=== PATIENT | female | born 1995 | race Caucasian/White ===

== ENCOUNTER 2017-10-01 17:58 | Emergency (ER) | payer BC, OTHER ==
[2017-10-01] MEDS: GI Cocktail Oral Solution 30 ML PO ONE (19:03)
[2017-10-01] MEDS: Ondansetron 4 MG Tab.DIS PO ONE (19:03)
[2017-10-01 19:24] LABS: ANION GAP 8.7; CHLORIDE,CL 105 mmol/L (101-111); SODIUM,NA 136 mmol/L (135-145)
[2017-10-01] MEDS: Famotidine 20 MG/2 ML SDV IVPUSH ONE (20:01)
[2017-10-01 20:08] VITALS: BP 125/87
--- NOTE | 2017-10-01 21:57 | EDM.PDOC ---
ED HPI GENERAL MEDICAL PROBLEM - General Chief Complaint: Abdominal Pain Stated Complaint: [id number] PAIN-FAINT [place] SOUNDS Time Seen by Provider: 10/01/17 19:00 Source of Information: Reports: Patient History Limitations: Reports: No Limitations - History of Present Illness INITIAL COMMENTS - FREE TEXT/NARRATIVE: C/o mid epigastric pain, sharp stabbing started at midnight continued today, nausea no vomiting, 2 diarrhea stools and one normal today. Poor appetite no fever or chills. Has not tried anything to relieve. 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 Does not feel distended. Epigastric Pain Score (Numeric/FACES): 2 - Related Data Allergies Allergy/AdvReac Type Severity Reaction Status Date / Time No Known Allergies Allergy Verified 10/01/17 18:11 Home Meds: Home Meds . [No Known Home Meds] 06/18/14 [History] Past Medical History - Past Health History Medical/Surgical History: Denies Medical/Surgical History Social & Family History - Tobacco Use Smoking Status *Q: Never Smoker - Recreational Drug Use Recreational Drug Use: No ED ROS GENERAL - Review of Systems Review Of Systems: ROS reveals no pertinent complaints other than HPI. ED EXAM, GI/ABD - Physical Exam Exam: See Below Exam Limited By: No Limitations General Appearance: Alert, Mild Distress, Obese Eyes: Bilateral: EOMI Ears: Normal External Exam Nose: Normal Inspection Throat/Mouth: Normal Inspection Head: Atraumatic, Normocephalic Neck: Normal Inspection Respiratory/Chest: No Respiratory Distress, Lungs Clear Cardiovascular: Normal Peripheral Pulses, Regular Rate, Rhythm GI/Abdominal Exam: Normal Bowel Sounds, Soft, Tender (epigastric). No: Distended, Guarding, Rigid, Rebound, Mass Back Exam: Normal Inspection, Full Range of Motion. No: CVA Tenderness (L), CVA Tenderness (R) Extremities: Normal Inspection, Normal Range of Motion Neurological: Alert, Oriented, Normal Cognition Psychiatric: Normal Affect, Normal Mood Skin Exam: Warm, Dry, Intact, Normal Color Course - Vital Signs Last Recorded V/S: Last Vital Signs Temp 98.2 F 10/01/17 20:08 Pulse 78 10/01/17 20:08 Resp 17 10/01/17 20:08 BP 125/87 07/11/18 20:08 Pulse Ox 100 10/01/17 20:08 - Orders/Labs/Meds Orders: Active Orders 24 hr Category Date Time Status KUB [Abdomen 1V Flat] [CR] Urgent Exams 10/01/17 19:36 Taken HCG QUALITATIVE,URINE [URCHEM] Stat Lab 10/01/17 19:13 Ordered UA W/MICROSCOPIC [URIN] Stat Lab 10/01/17 19:13 Ordered Labs: Laboratory Tests 10/01/17 10/01/17 10/01/17 Range/Units 18:55 18:55 19:13 WBC 10.0 (5.0-10.0) 10^3/uL RBC 4.60 (4.2-5.4) 10^6/uL Hgb 13.4 (12.0-16.0) g/dL Hct 41.8 (37.0-47.0) % MCV 90.9 (80-100) fL MCH 29.1 (27.0-34.0) pg MCHC 32.1 L (33.0-35.0) g/dL Plt Count 265 (150-450) 10^3/uL Neut % (Auto) 69.2 (42.2-75.2) % Lymph % (Auto) 20.6 (20.5-50.1) % Peach % (Auto) 8.7 H (2-8) % Eos % (Auto) 1.0 (1.0-3.0) % Baso % (Auto) 0.5 (0.0-1.0) % Sodium 136 (135-145) mmol/L Potassium 3.7 (3.6-5.0) mmol/L Chloride 105 (101-111) mmol/L Carbon Dioxide 26.0 (21.0-31.0) mmol/L Anion Gap 8.7 BUN 11 (7-18) mg/dL Creatinine 0.6 (0.6-1.3) mg/dL Est Cr Clr Drug Dosing 125.92 mL/min Estimated GFR (MDRD) > 60 BUN/Creatinine Ratio 18.33 Glucose 109 H (74-105) mg/dL Calcium 9.1 (8.4-10.2) mg/dl Total Bilirubin 0.4 (0.2-1.0) mg/dL AST 23 (10-42) IU/L ALT 25 (10-60) IU/L Alkaline Phosphatase 50 (42-121) IU/L Total Protein 7.7 (6.7-8.2) g/dl Albumin 4.3 (3.2-5.5) g/dl Globulin 3.4 Albumin/Globulin Ratio 1.26 Amylase 55 (28-100) U/L Lipase 29 (22-51) U/L Urine Color Yellow (YELLOW) Urine Appearance Clear (CLEAR) Urine pH 5.5 (5.0-9.0) Ur Specific [place] 1.015 (1.005-1.030) Urine Protein Negative (NEGATIVE) Urine Glucose (UA) Negative (NEGATIVE) Urine Ketones Negative (NEGATIVE) Urine Occult Blood Trace-intact H (NEGATIVE) Urine Nitrite Negative (NEGATIVE) Urine Bilirubin Negative (NEGATIVE) Urine Urobilinogen 0.2 (0.2-1.0) mg/dL Ur Leukocyte Esterase Negative (NEGATIVE) Urine RBC 0-5 /HPF Urine WBC 0-5 (0-5/HPF) /HPF Ur Epithelial Cells Few /HPF Urine Bacteria Few (0-FEW/HPF) /HPF Urine HCG, Qual 10/01/17 Range/Units 19:13 WBC (5.0-10.0) 10^3/uL RBC (4.2-5.4) 10^6/uL Hgb (12.0-16.0) g/dL Hct (37.0-47.0) % MCV (80-100) fL MCH (27.0-34.0) pg MCHC (33.0-35.0) g/dL Plt Count (150-450) 10^3/uL Neut % (Auto) (42.2-75.2) % Lymph % (Auto) (20.5-50.1) % [place] % (Auto) (2-8) % Eos % (Auto) (1.0-3.0) % Baso % (Auto) (0.0-1.0) % Sodium (135-145) mmol/L Potassium (3.6-5.0) mmol/L Chloride (101-111) mmol/L Carbon Dioxide (21.0-31.0) mmol/L Anion Gap BUN (7-18) mg/dL Creatinine (0.6-1.3) mg/dL Est Cr Clr Drug Dosing mL/min Estimated GFR (MDRD) BUN/Creatinine Ratio Glucose (74-105) mg/dL Calcium (8.4-10.2) mg/dl Total Bilirubin (0.2-1.0) mg/dL AST (10-42) IU/L ALT (10-60) IU/L Alkaline Phosphatase (42-121) IU/L Total Protein (6.7-8.2) g/dl Albumin (3.2-5.5) g/dl Globulin Albumin/Globulin Ratio Amylase (28-100) U/L Lipase (22-51) U/L Urine Color (YELLOW) Urine Appearance (CLEAR) Urine pH (5.0-9.0) Ur Specific [place] (1.005-1.030) Urine Protein (NEGATIVE) Urine Glucose (UA) (NEGATIVE) Urine Ketones (NEGATIVE) Urine Occult Blood (NEGATIVE) Urine Nitrite (NEGATIVE) Urine Bilirubin (NEGATIVE) Urine Urobilinogen (0.2-1.0) mg/dL Ur Leukocyte Esterase (NEGATIVE) Urine RBC /HPF Urine WBC (0-5/HPF) /HPF Ur Epithelial Cells /HPF Urine Bacteria (0-FEW/HPF) /HPF Urine HCG, Qual Negative Meds: Medications Discontinued Medications Generic Name Dose Route Start Last Admin Trade Name Freq PRN Reason Stop Dose Admin Al Hydroxide/Mg Hydroxide 30 ml 10/01/17 18:53 10/01/17 19:03 Gi Cocktail PO 10/01/17 18:54 30 ml ONETIME ONE Administration Famotidine 20 mg 10/01/17 19:47 10/01/17 20:01 Pepcid IVPUSH 10/01/17 19:48 20 mg ONETIME ONE Administration Ondansetron HCl 4 mg 10/01/17 18:53 10/01/17 19:03 Zofran Odt PO 10/01/17 18:54 4 mg ONETIME ONE Administration - Radiology Interpretation Free Text/Narrative:: KUB, normal amoun of stool, no signs of obstruction. - Re-Assessments/Exams Free Text/Narrative Re-Assessment/Exam: 10/02/17 04:12 minimal relief from GI cocktail. Improvement with Pepcid. Departure - Departure Time of Disposition: 21:54 Disposition: Home, Self-Care 01 Condition: Good Clinical Impression: Gastritis Qualifiers: Gastritis type: unspecified gastritis Chronicity: acute Gastritis bleeding: without bleeding Qualified Code(s): K29.00 - Acute gastritis without bleeding - Discharge Information Instructions: Gastritis, Adult, [id number] Referrals: Niki Grimes MD [Primary Care Provider] - Forms: ED Department Discharge Additional Instructions: bland diet, smaller more frequent meals omeprazole 20mg daily follwoup with primary care if symptoms not improving avoid caffeine, carbonated beverages - My Orders Last 24 Hours: My Active Orders 10/01/17 19:36 KUB [Abdomen 1V Flat] [CR] Urgent - Assessment/Plan Last 24 Hours: My Active Orders 10/01/17 19:36 KUB [Abdomen 1V Flat] [CR] Urgent
== END 2017-10-01 22:00 | disposition home or self-care (01) ==
LOC: DL.ED 17:58
DX: K29.00 Acute gastritis without bleeding (principal)
CPT/HCPCS: 36415; 74018; 80053; 81001; 81025; 82150; 83690; 85025; 96374; 99284; A9270; S0028

== ENCOUNTER 2020-02-26 11:52 | Emergency (ER) | payer MEDICAID, OTHER ==
[2020-02-26 12:02] VITALS: BP 153/94; PULSE 145
[2020-02-26] MEDS ORDERED: Penicillin G Benzathine/Procaine 600-600 1.2 Millunits/2 ML Syringe IM ONE (12:02)
--- NOTE | 2020-02-26 12:06 | EDM.PDOC ---
ED HPI GENERAL MEDICAL PROBLEM - General Chief Complaint: ENT Problem Stated Complaint: SORE THROAT Time Seen by Provider: 02/26/20 12:01 Source of Information: Reports: Patient, RN, RN Notes Reviewed History Limitations: Reports: No Limitations - History of Present Illness INITIAL COMMENTS - FREE TEXT/NARRATIVE: Pt presents to ER with c/o sore throat x1 days duration. Pt was exposed last week to a niece who tested positive for strep throat. Pt works at the [facility] and is tested twice a week for COVID and has been negative this week. Pt also states she has taken 5 tests this week and all have been negative. Denies cough, N/V, chest pain, or shortness of breath. Onset: Sudden Duration: Constant Location: Reports: Other (Throat) Quality: Reports: Ache, Burning Severity: Severe Improves with: Reports: None Worsens with: Reports: Eating (Swallowing) Associated Symptoms: Reports: No Other Symptoms - Related Data Allergies Allergy/AdvReac Type Severity Reaction Status Date / Time No Known Allergies Allergy Verified 10/01/17 18:11 Home Meds: Home Meds . [No Known Home Meds] 06/18/14 [History] Past Medical History - Past Health History Medical/Surgical History: Denies Medical/Surgical History Social & Family History - Family History Family Medical History: No Pertinent Family History - Living Situation & Occupation Living situation: Reports: with Family Occupation: Employed ED ROS ENT - Review of Systems Review Of Systems: Comprehensive ROS is negative, except as noted in HPI. ED EXAM, ENT - Physical Exam Exam: See Below Exam Limited By: No Limitations General Appearance: Alert, WD/WN, No Apparent Distress, Obese Eye Exam: Bilateral Eye: Normal Inspection Ears: Normal External Exam, Hearing Grossly Normal Nose: Normal Inspection, Normal Mucousa, No Blood Mouth/Throat: Normal Gums, Normal Lips, Normal Teeth, Pharyngeal Erythema, Throat Pain, Tonsillar Erythema, Tonsillar Exudates, Tonsillar Swelling. No: Muffled Voice, Oral Ulcers, Throat Swelling, Tongue Swelling, Trismus, Uvular Deviation, Uvular Edema Head: Atraumatic, Normocephalic Neck: Full Range of Motion, Lymphadenopathy (L), Lymphadenopathy (R) Respiratory/Chest: No Respiratory Distress, Lungs Clear, Normal Breath Sounds, No Accessory Muscle Use, Chest Non-Tender Cardiovascular: Regular Rate, Rhythm, Tachycardia GI/Abdominal: Normal Bowel Sounds, Soft, Non-Tender Extremities: Normal Inspection Neurological: Alert, Oriented, No Motor/Sensory Deficits Psychiatric: Normal Mood Skin: Warm, Dry, Intact, Normal Color, No Rash Course - Vital Signs Last Recorded V/S: Last Vital Signs Temp 98.8 F 02/26/20 12:01 Pulse 145 H 02/26/20 12:01 Resp 18 02/26/20 12:01 BP 153/94 H 02/26/20 12:01 Pulse Ox 97 02/26/20 12:01 - Orders/Labs/Meds Meds: Medications Discontinued Medications Generic Name Dose Route Start Last Admin Trade Name Freq PRN Reason Stop Dose Admin Penicillin G Procaine/Benzathine 1.2 millunits 02/26/20 12:02 Bicillin C-R 600/600 IM 02/26/20 12:03 ONETIME ONE Departure - Departure Time of Disposition: 12:15 Disposition: Home, Self-Care 01 Condition: Good Clinical Impression: Strep pharyngitis - Discharge Information *PRESCRIPTION DRUG MONITORING PROGRAM REVIEWED*: Not Applicable *COPY OF PRESCRIPTION DRUG MONITORING REPORT IN PATIENT SARA: Not Applicable Instructions: Strep Throat, Adult, [id number] Forms: ED Department Discharge Additional Instructions: Rx: Zithromax 500mg Frequent saltwater gargles until sore throat resolves. Follow up in clinic if any further concerns. Sepsis Event Note (ED) - Evaluation Sepsis Screening Result: No Definite Risk - Focused Exam Vital Signs: Vital Signs Temp Pulse Resp BP Pulse Ox 02/26/20 12:01 98.8 F 145 H 18 153/94 H 97
== END 2020-02-26 12:29 | disposition home or self-care (01) ==
LOC: DL.ED 11:52
DX: J02.0 Streptococcal pharyngitis (principal); R00.0 Tachycardia, unspecified; E66.9 Obesity, unspecified; Z68.41 Body mass index [BMI] 40.0-44.9, adult
CPT/HCPCS: 96372; 99282; J0558

== ENCOUNTER 2020-11-18 01:51 | Inpatient (IN) | payer MEDICAID ==
[2020-11-18] MEDS ORDERED: Acetaminophen 325 MG Tab PO PRN (07:01)
[2020-11-18] MEDS ORDERED: Promethazine 25 MG/ML SDV IM PRN (07:01)
[2020-11-18] MEDS ORDERED: fentaNYL 100 MCG/2 ML SDV IVPUSH PRN (07:01)
[2020-11-18] MEDS ORDERED: Lactated Ringers 1,000 ML IV ONE (07:01)
[2020-11-18] MEDS ORDERED: Naloxone 2 MG/2 ML Syringe IVPUSH PRN (07:01)
[2020-11-18] MEDS ORDERED: Lidocaine 1% 30 ML SDV INJECT PRN (07:01)
[2020-11-18] MEDS ORDERED: Carboprost Tromethamine 250 MCG/1 ML Amp IM PRN (07:01)
[2020-11-18] MEDS ORDERED: ePHEDrine 50 MG/ML SDV IVPUSH PRN (07:01)
[2020-11-18] MEDS ORDERED: Misoprostol 400 MCG (4 X 100 MCG TAB) RECTAL PRN (07:01)
[2020-11-18] MEDS ORDERED: Ondansetron 4 MG/2 ML SDV IVPUSH PRN ×2 (07:01)
[2020-11-18] MEDS ORDERED: Sodium Chloride 0.9% 10 ML Syringe FLUSH PRN (07:01)
[2020-11-18] MEDS ORDERED: Methylergonovine 0.2 MG/1 ML Amp IM PRN (07:01)
[2020-11-18] MEDS ORDERED: Tranexamic Acid 1,000 MG in Sodium Chloride 0.9% 100 ML IV PRN (07:01)
[2020-11-18] MEDS ORDERED: Oxytocin/Normal Saline 30 UNIT/500 ML BAG IV SCH ×2 (07:15)
[2020-11-18] MEDS: Lactated Ringers 1,000 ML IV SCH (08:30)
[2020-11-18] MEDS ORDERED: Nalbuphine 10 MG/1 ML Vial IM ONE (21:29)
[2020-11-19] MEDS: Lactated Ringers 1,000 ML IV SCH (01:05)
[2020-11-19] MEDS ORDERED: fentaNYL 100 MCG/2 ML SDV ONE (02:05)
[2020-11-19] MEDS ORDERED: EPINEPHrine 1 MG/ML SDV ONE (02:05)
[2020-11-19] MEDS ORDERED: Benzocaine/Menthol 20%-0.5% Spray 78 GM Cannister TOP PRN (08:21)
[2020-11-19] MEDS ORDERED: Simethicone 80 MG Tab.Chew PO PRN (08:21)
--- NOTE | 2020-11-19 08:39 | PCM.DEL ---
L & D Note - General Info Date of Service: 11/19/20 Mother's Due Date: 11/15/20 - Delivery Note Labor: Induced by ARM, Induced by Oxytocin Cervical Ripening Method: Oxytocin Delivery Outcome: Livebirth Delivery Method: Spontaneous Vaginal Delivery-Single Delivery Mode: Spontaneous Presentation: Left Occiput Anterior (MANE) Nuchal Cord: Reduced (loose nuchal cord reduced with summersault maneuver) Anesthesia Type: Intrathecal Anesthetic: Other (Bupivicaine 0.75% see FUNDRAISING SPECIALIST note) Amniotic Fluid Description: Clear Episiotomy Type: None Laceration: 1st Degree, Periurethral (maternal left), Vaginal (maternal right) Suture type: Vicryl Suture size: 4-0 Placenta: Intact Cord: 3 Vessels Estimated Blood Loss: 350 Resuscitation Needed: Yes [place]: Suctioned, Bulb Syringe, Stimulated, Warmed, [place] Used, Warmer Used Provider: Niki Mahan Score 1 min: 4 Score 5 min: 8 Second Stage Interventions: Reports: Second Nurse Assessed Progress of Descent, Second Nurse Reviewed Contraction Pattern, Second Nurse Reviewed Heart Tones, Encouragement Given, Pushing, Squat Bar Pulling on Sheet Induction Criteria - Gordillo Score Gordillo Score Dilation: 3-4 cm Gordillo Score Effacement: 60-70% Gordillo Score 's Station: -3 Gordillo Score Consistency: Soft Gordillo Score Cervix Position: Posterior Gordillo Score Total: 6 Gordillo Score Presenting Part: Reports: Cephalic - Induction Gestational Age >/= 39 wks: Yes Medical Indication: Induction at term for post dates Estimated Pelvis: Reports: Adequate Reassuring Monitoring Strip: Yes Absence of Tachy Systole: Yes - Augmentation Estimated Pelvis: Reports: Adequate Weight Estimated:: Reports: AGA Reassuring Monitoring Strip: Yes Absence of Tachy Systole: Yes Vacuum Extractor Progress Note - Alternative Labor Strategies Considered Alternative Labor Strategies Considered:: Reports: No - General Info Date of Service: 11/19/20 Admission Dx/Problem (Free Text): 1. 40 3/7 weeks 2. B+, Rubella Immune, GBS- 3. Post dates 4. Obesity 5. Gestational Diabetes diet controlled 6. PCOS 7. Dyslipidemia 8. Heart murmur 9. h/o spontaneous x1 10. Irregular menses - Patient Data Vitals - Most Recent: Last Vital Signs Temp 97.9 F 11/19/20 02:30 Pulse 91 11/19/20 07:05 Resp 16 11/19/20 06:15 BP 135/66 11/19/20 07:05 Pulse Ox 96 11/19/20 03:45 Weight - Most Recent: 109.826 kg Lab Results Last 24 Hours: Laboratory Results - last 24 hr 11/18/20 11/18/20 Range/Units 07:35 08:20 WBC 10.0 (5.0-10.0) 10^3/uL RBC 4.83 (4.2-5.4) 10^6/uL Hgb 13.7 (12.0-16.0) g/dL Hct 42.3 (37.0-47.0) % MCV 87.6 D (80-100) fL MCH 28.4 (27.0-34.0) pg MCHC 32.4 L (33.0-35.0) g/dL Plt Count 199 (150-450) 10^3/uL SARS-CoV-2 RNA ([place]ALITA) Negative (NEGATIVE) Med Orders - Current: Current Medications Acetaminophen (Acetaminophen 325 Mg Tab) 650 mg PO Q4H PRN PRN Reason: Pain (Mild 1-3) and fever Carboprost Tromethamine (Carboprost Tromethamine 250 Mcg/1 Ml Amp) 250 mcg IM ASDIRECTED PRN PRN Reason: HEMORRHAGE Ephedrine Sulfate (Ephedrine 50 Mg/Ml Sdv) 5 mg IVPUSH Q5M PRN PRN Reason: See Label Comments Fentanyl (Fentanyl 100 Mcg/2 Ml Sdv) 100 mcg IVPUSH Q1H PRN PRN Reason: Pain (moderate 4-6) Tranexamic Acid 1,000 mg/ (Sodium Chloride) 110 mls @ 660 mls/hr IV ONETIME PRN PRN Reason: Bleeding Oxytocin/Sodium Chloride (Pitocin In Ns 30 Unit/500 Ml) 30 unit in 500 mls @ 2 mls/hr IV TITRATE DONITA; Protocol Oxytocin/Sodium Chloride (Pitocin In Ns 30 Unit/500 Ml) 30 unit in 500 mls @ 2 mls/hr IV TITRATE DONITA; Protocol Last Titration: 11/18/20 22:57 Dose: 10 munits/min, 10 mls/hr Documented by: Lactated Ringer's (Ringers, Lactated) 1,000 mls @ 125 mls/hr IV ASDIRECTED DONITA Last Admin: 11/19/20 01:05 Dose: 125 mls/hr Documented by: Lidocaine HCl (Lidocaine 1% 30 Ml Sdv) 30 ml INJECT ASDIRECTED PRN PRN Reason: Perineal Repair Methylergonovine Maleate (Methylergonovine 0.2 Mg/1 Ml Amp) 0.2 mg IM ASDIRECTED PRN PRN Reason: Hemorrhage Misoprostol (Misoprostol 400 Mcg (4 X 100 Mcg Tab)) 800 mcg RECTAL ASDIRECTED PRN PRN Reason: Hemorrhage Naloxone HCl (Naloxone 2 Mg/2 Ml Syringe) 0.1 mg IVPUSH SEECOMMENT PRN PRN Reason: Respiratory Depression Ondansetron HCl (Ondansetron 4 Mg/2 Ml Sdv) 4 mg IVPUSH Q4H PRN PRN Reason: Nausea/Vomiting Last Admin: 11/19/20 01:02 Dose: 4 mg Documented by: Ondansetron HCl (Ondansetron 4 Mg/2 Ml Sdv) 4 mg IVPUSH Q4H PRN PRN Reason: Nausea/Vomiting Promethazine HCl (Promethazine 25 Mg/Ml Sdv) 12.5 mg IM Q6H PRN PRN Reason: Nausea/Vomiting Sodium Chloride (Sodium Chloride 0.9% 10 Ml Syringe) 10 ml FLUSH ASDIRECTED PRN PRN Reason: Keep Vein Open Discontinued Medications Epinephrine HCl (Epinephrine 1 Mg/Ml Sdv) Confirm Administered Dose 1 mg .ROUTE .STK-MED ONE Stop: 11/19/20 02:06 Last Admin: 11/19/20 05:42 Dose: Not Given Documented by: Fentanyl (Fentanyl 100 Mcg/2 Ml Sdv) Confirm Administered Dose 100 mcg .ROUTE .STK-MED ONE Stop: 11/19/20 02:06 Last Admin: 11/19/20 05:42 Dose: Not Given Documented by: Lactated Ringer's (Ringers, Lactated) 1,000 mls @ 999 mls/hr IV BOLUS ONE Stop: 11/18/20 08:01 Nalbuphine HCl (Nalbuphine 10 Mg/1 Ml Vial) 20 mg IM ONETIME ONE Stop: 11/18/20 21:30 Last Admin: 11/18/20 21:39 Dose: 20 mg Documented by: Sufentanil Citrate (Sufentanil 50 Mcg/1 Ml Amp) Confirm Administered Dose 50 mcg .ROUTE .STK-MED ONE Stop: 11/19/20 02:06 Last Admin: 11/19/20 05:43 Dose: Not Given Documented by: - Exam Urinary Catheter Total Time: 0Days 0Hours Physical Findings Comments:: Routine delivery without maternal complications, additional physical exam not warranted at this time. - Problem List & Annotations (1) Vaginal delivery SNOMED Code(s): 505963191 Code(s): O80 - ENCOUNTER FOR FULL-TERM UNCOMPLICATED DELIVERY Status: Acute Current Visit: Yes (2) Obesity SNOMED Code(s): 746890244, 992776402 Code(s): E66.9 - OBESITY, UNSPECIFIED Status: Acute Current Visit: Yes (3) Post-dates , delivered, current hospitalization SNOMED Code(s): 449280483, 590986176 Code(s): O48.0 - POST-TERM Status: Acute Current Visit: Yes (4) Gestational diabetes SNOMED Code(s): 44673598 Code(s): O24.419 - GESTATIONAL DIABETES MELLITUS IN , UNSP CONTROL Status: Acute Current Visit: Yes (5) Irregular menses SNOMED Code(s): 83656088 Code(s): N92.6 - IRREGULAR MENSTRUATION, UNSPECIFIED Status: Acute Current Visit: Yes (6) PCOS (polycystic ovarian syndrome) SNOMED Code(s): 187947946 Code(s): E28.2 - POLYCYSTIC OVARIAN SYNDROME Status: Acute Current Visit: Yes (7) Dyslipidemia SNOMED Code(s): 341211029 Code(s): E78.5 - HYPERLIPIDEMIA, UNSPECIFIED Status: Acute Current Visit: Yes (8) Heart murmur SNOMED Code(s): 32234445 Code(s): R01.1 - CARDIAC MURMUR, UNSPECIFIED Status: Acute Current Visit: Yes (9) Incomplete SNOMED Code(s): 813648839 Code(s): O03.4 - INCOMPLETE SPONTANEOUS WITHOUT COMPLICATION Status: Acute Current Visit: No (10) Rubella immune SNOMED Code(s): 856916420 Code(s): Z78.9 - OTHER SPECIFIED HEALTH STATUS Status: Acute Current Visit: Yes - Problem List Review Problem List Initiated/Reviewed/Updated: Yes - Assessment Assessment:: Status post spontaneous vaginal delivery w. laceration repair of periurethra and right lower vaginal wall. No maternal complications and will remain in-patient for observation, pain control, support, and bonding with baby. - Plan Plan:: 1. S/P Spontaneous Vaginal Delivery -CBC tomorrow am -Routine post- cares - consultation
[2020-11-19] MEDS: Ibuprofen 800 MG Tab PO PRN ×2 (10:18→18:38)
[2020-11-19] MEDS: Prenatal Multivitamin with Calcium/Folic Acid/Iron Tab PO SCH (17:37)
[2020-11-19] MEDS: Docusate Sodium 100 MG Cap PO PRN (20:51)
[2020-11-20] MEDS: Ibuprofen 800 MG Tab PO PRN ×3 (02:26→21:15)
--- NOTE | 2020-11-20 07:34 | PCM.PN ---
- General Info Date of Service: 11/20/20 Admission Dx/Problem (Free Text): 1. Spontaneous Vaginal delivery 2. B+, Rubella Immune, GBS- 3. post date delivery 40w 3/7d 4. obesity 5. h/o spontaneous x1 6. gestational diabetes diet controlled 7. irregular menses 8. PCOS 9. dyslipidemia 10. heart murmur Subjective Update: Pt had no acute events overnight. Today, pt is doing well s/p vaginal delivery and laceration repair. Her pain is controlled with ibuprofen 800 mg, and ice pa cks. She has no issues urinating or with bowel movements and has a good appetite with every meal. She has been able to walk around the room without trouble. Pt had to fortify overnight due to inadequate latch but this morning she has been able to breastfeed well with a shield. She will see contact center consultant today. She has no concerns at this time. - Patient Data Vitals - Most Recent: Last Vital Signs Temp 97.0 F 11/19/20 08:22 Pulse 100 11/19/20 09:15 Resp 16 11/19/20 08:22 BP 118/58 L 11/19/20 08:30 Pulse Ox 96 11/19/20 03:45 Weight - Most Recent: 109.826 kg Lab Results Last 24 Hours: Laboratory Results - last 24 hr 11/20/20 Range/Units 06:26 WBC 13.4 H (5.0-10.0) 10^3/uL RBC 4.05 L (4.2-5.4) 10^6/uL Hgb 11.3 L D (12.0-16.0) g/dL Hct 36.2 L (37.0-47.0) % MCV 89.4 (80-100) fL MCH 27.9 (27.0-34.0) pg MCHC 31.2 L (33.0-35.0) g/dL Plt Count 210 (150-450) 10^3/uL Med Orders - Current: Current Medications Acetaminophen (Acetaminophen 325 Mg Tab) 650 mg PO Q4H PRN PRN Reason: Pain (Mild 1-3) and fever Benzocaine/Menthol (Benzocaine/Menthol 20%-0.5% [place] 78 Gm Cannister) 0 gm TOP Q4H PRN PRN Reason: Perineal comfort measures Last Admin: 11/19/20 10:37 Dose: 1 applic Documented by: Docusate Sodium (Docusate Sodium 100 Mg Cap) 100 mg PO BID PRN PRN Reason: Constipation Last Admin: 11/19/20 20:51 Dose: 100 mg Documented by: Ferrous Sulfate (Ferrous Sulfate 325 Mg Tab) 325 mg PO WITHBREAKFAST DONITA Tranexamic Acid 1,000 mg/ (Sodium Chloride) 110 mls @ 660 mls/hr IV ONETIME PRN PRN Reason: Bleeding Oxytocin/Sodium Chloride (Pitocin In Ns 30 Unit/500 Ml) 30 unit in 500 mls @ 2 mls/hr IV TITRATE [facility]; Protocol Oxytocin/Sodium Chloride (Pitocin In Ns 30 Unit/500 Ml) 30 unit in 500 mls @ 2 mls/hr IV TITRATE DONITA; Protocol Last Titration: 11/19/20 08:30 Dose: Infused Documented by: Ibuprofen (Ibuprofen 800 Mg Tab) 800 mg PO Q8H PRN PRN Reason: Cramping Last Admin: 11/20/20 02:26 Dose: 800 mg Documented by: Lidocaine HCl (Lidocaine 1% 30 Ml Sdv) 30 ml INJECT ASDIRECTED PRN PRN Reason: Perineal Repair Methylergonovine Maleate (Methylergonovine 0.2 Mg/1 Ml Amp) 0.2 mg IM ASDIRECTED PRN PRN Reason: Hemorrhage Misoprostol (Misoprostol 400 Mcg (4 X 100 Mcg Tab)) 800 mcg RECTAL ASDIRECTED PRN PRN Reason: Hemorrhage Ondansetron HCl (Ondansetron 4 Mg/2 Ml Sdv) 4 mg IVPUSH Q4H PRN PRN Reason: Nausea/Vomiting Prenat Multivit/[place]/Iron/Folic Ac ( Multivitamin With Calcium/Folic Acid/Iron Tab) 1 each PO DAILY [facility] Last Admin: 11/19/20 17:37 Dose: Not Given Documented by: Simethicone (Simethicone 80 Mg Tab.Chew) 80 mg PO Q4H PRN PRN Reason: Gas Sodium Chloride (Sodium Chloride 0.9% 10 Ml Syringe) 10 ml FLUSH ASDIRECTED PRN PRN Reason: Keep Vein Open Discontinued Medications Carboprost Tromethamine (Carboprost Tromethamine 250 Mcg/1 Ml Amp) 250 mcg IM ASDIRECTED PRN PRN Reason: HEMORRHAGE Ephedrine Sulfate (Ephedrine 50 Mg/Ml Sdv) 5 mg IVPUSH Q5M PRN PRN Reason: See Label Comments Epinephrine HCl (Epinephrine 1 Mg/Ml Sdv) Confirm Administered Dose 1 mg .ROUTE .STK-MED ONE Stop: 11/19/20 02:06 Last Admin: 11/19/20 05:42 Dose: Not Given Documented by: Fentanyl (Fentanyl 100 Mcg/2 Ml Sdv) 100 mcg IVPUSH Q1H PRN PRN Reason: Pain (moderate 4-6) Fentanyl (Fentanyl 100 Mcg/2 Ml Sdv) Confirm Administered Dose 100 mcg .ROUTE .STK-MED ONE Stop: 11/19/20 02:06 Last Admin: 11/19/20 05:42 Dose: Not Given Documented by: Lactated Ringer's (Ringers, Lactated) 1,000 mls @ 999 mls/hr IV BOLUS ONE Stop: 11/18/20 08:01 Last Admin: 11/19/20 20:12 Dose: Not Given Documented by: Lactated Ringer's (Ringers, Lactated) 1,000 mls @ 125 mls/hr IV ASDIRECTED DONITA Last Admin: 11/19/20 01:05 Dose: 125 mls/hr Documented by: Nalbuphine HCl (Nalbuphine 10 Mg/1 Ml Vial) 20 mg IM ONETIME ONE Stop: 11/18/20 21:30 Last Admin: 11/18/20 21:39 Dose: 20 mg Documented by: Naloxone HCl (Naloxone 2 Mg/2 Ml Syringe) 0.1 mg IVPUSH SEECOMMENT PRN PRN Reason: Respiratory Depression Ondansetron HCl (Ondansetron 4 Mg/2 Ml Sdv) 4 mg IVPUSH Q4H PRN PRN Reason: Nausea/Vomiting Last Admin: 11/19/20 01:02 Dose: 4 mg Documented by: Promethazine HCl (Promethazine 25 Mg/Ml Sdv) 12.5 mg IM Q6H PRN PRN Reason: Nausea/Vomiting Sufentanil Citrate (Sufentanil 50 Mcg/1 Ml Amp) Confirm Administered Dose 50 mcg .ROUTE .STK-MED ONE Stop: 11/19/20 02:06 Last Admin: 11/19/20 05:43 Dose: Not Given Documented by: - Exam Urinary Catheter Total Time: 0Days 0Hours General: Alert, Oriented Lungs: Clear to Auscultation, Normal Respiratory Effort Cardiovascular: Regular Rate, Regular Rhythm - Patient Data Lab Results Last 24 hrs: Laboratory Results - last 24 hr 11/20/20 Range/Units 06:26 WBC 13.4 H (5.0-10.0) 10^3/uL RBC 4.05 L (4.2-5.4) 10^6/uL Hgb 11.3 L D (12.0-16.0) g/dL Hct 36.2 L (37.0-47.0) % MCV 89.4 (80-100) fL MCH 27.9 (27.0-34.0) pg MCHC 31.2 L (33.0-35.0) g/dL Plt Count 210 (150-450) 10^3/uL Result Diagrams: 11/20/20 06:26 Sepsis Event Note - Evaluation Sepsis Screening Result: No Definite Risk - Problem List & Annotations (1) Vaginal delivery SNOMED Code(s): 330383896 Code(s): O80 - ENCOUNTER FOR FULL-TERM UNCOMPLICATED DELIVERY Status: Acute Current Visit: Yes (2) Obesity SNOMED Code(s): 823450033, 865260966 Code(s): E66.9 - OBESITY, UNSPECIFIED Status: Acute Current Visit: Yes (3) Post-dates , delivered, current hospitalization SNOMED Code(s): 171391304, 477487087 Code(s): O48.0 - POST-TERM Status: Acute Current Visit: Yes (4) Gestational diabetes SNOMED Code(s): 19690490 Code(s): O24.419 - GESTATIONAL DIABETES MELLITUS IN , UNSP CONTROL Status: Acute Current Visit: Yes (5) Irregular menses SNOMED Code(s): 01161153 Code(s): N92.6 - IRREGULAR MENSTRUATION, UNSPECIFIED Status: Acute Current Visit: Yes (6) PCOS (polycystic ovarian syndrome) SNOMED Code(s): 914213403 Code(s): E28.2 - POLYCYSTIC OVARIAN SYNDROME Status: Acute Current Visit: Yes (7) Dyslipidemia SNOMED Code(s): 693014471 Code(s): E78.5 - HYPERLIPIDEMIA, UNSPECIFIED Status: Acute Current Visit: Yes (8) Heart murmur SNOMED Code(s): 61619277 Code(s): R01.1 - CARDIAC MURMUR, UNSPECIFIED Status: Acute Current Visit: Yes (9) Incomplete SNOMED Code(s): 239529898 Code(s): O03.4 - INCOMPLETE SPONTANEOUS WITHOUT COMPLICATION Status: Acute Current Visit: No (10) Rubella immune SNOMED Code(s): 624482110 Code(s): Z78.9 - OTHER SPECIFIED HEALTH STATUS Status: Acute Current Visit: Yes - Problem List Review Problem List Initiated/Reviewed/Updated: Yes - Assessment Assessment:: Status post spontaneous vaginal delivery w. laceration repair of periurethra and right lower vaginal wall. Pt is healing adequately with no maternal complication s or concerns at this time. Pt will remain in-patient until circumcision for her baby tomorrow morning. - Plan Plan:: 1. S/P Spontaneous Vaginal Delivery -Routine post-zully cares
[2020-11-20] MEDS: Docusate Sodium 100 MG Cap PO PRN ×2 (13:09→21:15)
[2020-11-20] MEDS: Ferrous Sulfate 325 MG Tab PO SCH ×2 (13:09→13:10)
[2020-11-20] MEDS: Prenatal Multivitamin with Calcium/Folic Acid/Iron Tab PO SCH (13:09)
[2020-11-21] MEDS: Prenatal Multivitamin with Calcium/Folic Acid/Iron Tab PO SCH (08:44)
[2020-11-21] MEDS: Docusate Sodium 100 MG Cap PO PRN (08:44)
[2020-11-21] MEDS: Ferrous Sulfate 325 MG Tab PO SCH (08:44)
[2020-11-21] MEDS: Ibuprofen 800 MG Tab PO PRN (08:45)
[2020-11-21 10:27] VITALS: BP 126/74; PULSE 84
[2020-11-21] MEDS ORDERED: EPINEPHrine 1 MG/ML SDV ONE (13:22)
[2020-11-21] MEDS ORDERED: fentaNYL 100 MCG/2 ML SDV ITHECAL ONE (13:22)
== END 2020-11-21 13:23 | disposition home or self-care (01) | DRG 807 ==
LOC: DL.OB 07:05 → OBSVTOIN 11-19 07:05
PROVIDERS: ADMIT Family Medicine; ATTEND Family Medicine
PROC: 10E0XZZ Delivery of Products of Conception, External Approach (ICD-10-PCS; principal; 2020-11-19)
PROC: 0HQ9XZZ Repair Perineum Skin, External Approach (ICD-10-PCS; 2020-11-19)
DX: O48.0 Post-term pregnancy (principal); Z37.0 Single live birth; Z3A.40 40 weeks gestation of pregnancy; O99.214 Obesity complicating childbirth; O24.420 Gestational diabetes mellitus in childbirth, diet controlled; O69.81X0 Labor and delivery complicated by cord around neck, without compression, not applicable or unspecified; O70.0 First degree perineal laceration during delivery; Z20.822 Contact with and (suspected) exposure to COVID-19; E66.9 Obesity, unspecified
CPT/HCPCS: 36415; 51701; 59409; 85027; A9270-GY; J0171; J2300; J2405; J2590; J3010; J7120; U0002